=== PATIENT | male | born 1950 | race Caucasian/White ===

== ENCOUNTER → 2017-02-25 | Outpatient (CLI) | payer MEDICARE, OTHER ==
[~2017-02-25] MED LIST: FENTANYL
--- NOTE | 2017-02-25 22:02 | Diagnostic Imaging Report ---
INDICATION: Bilateral groin pain x2 weeks. FINDINGS: Right testicle measures 4.2 x 1.8 x 2.4 cm. Left testicle measures 4.1 x 1.9 x 3.2 cm. The testes have homogeneous echotexture and normal vascularity. There is a small left hydrocele. There are bilateral varicoceles. Epididymides are unremarkable. IMPRESSION: Bilateral varicoceles and small left hydrocele. Dictated by: Dictated on workstation # [id number]
== END ==
LOC: RAD 15:08
PROVIDERS: ATTEND Nurse Practitioner Family
DX: I86.1 Scrotal varices (principal); N43.3 Hydrocele, unspecified
CPT/HCPCS: 76870

== ENCOUNTER → 2017-03-01 | Outpatient (CLI) | payer MEDICARE, OTHER ==
--- NOTE | 2017-03-01 13:09 | Diagnostic Imaging Report ---
PROCEDURE: MRI lumbar spine. TECHNIQUE: Multiplanar, multisequence MRI of the lumbar spine was performed without contrast. INDICATION: Moving furniture with low back pain and bilateral leg pain. FINDINGS: Sagittal view shows some straightening of the normal lordotic curve. Alignment is otherwise good. Body height is well maintained with no compression fractures. Facets show good alignment. No pars defects are present. L3-L4: There is broad-based disc herniation with marked posterior facet and ligamentous hypertrophy which is causing trefoil stenosis. There is high-grade encroachment upon the lateral recesses and neuroforamen bilaterally. The AP central canal dimension is approximately 5 mm. L4-L5 and L5-S1: There is loss of disc space height with desiccation. Hypertrophic lipping of the endplates present bilaterally causing mild to moderate encroachment upon the neuroforamen. Laminectomy is present with no central canal stenosis. L1-L2, L2-L3: The discs appear normal. No facet or ligamentous hypertrophy. The conus medullaris and cauda equina are normal. Paraspinal soft tissues are normal. IMPRESSION: 1. Broad-based disc herniation with rather marked posterior facet and ligamentous hypertrophy at L3-L4 causing moderate to severe to severe encroachment upon the lateral recess and neuroforamen with minimal AP canal dimension of 5 mm. 2. Postsurgical changes L4-L5 with no central canal stenosis. Dictated by: Dictated on workstation # [id number]
== END ==
LOC: RAD 11:37
DX: M51.26 Other intervertebral disc displacement, lumbar region (principal); M89.38 Hypertrophy of bone, other site; M24.28 Disorder of ligament, vertebrae; M79.604 Pain in right leg; M79.605 Pain in left leg
CPT/HCPCS: 72148

== ENCOUNTER → 2018-06-23 | Outpatient (CLI) | payer MEDICARE, OTHER ==
--- NOTE | 2018-06-23 13:22 | Diagnostic Imaging Report ---
INDICATION: Left thumb pain. TIME OF EXAM: 11:57 a.m. Three views of the left hand were obtained. There is narrowing of the first CMC joint with some marginal osteophyte formation. This is consistent with osteo-arthritic changes. Metacarpals are intact. The phalanges are intact. No fractures are seen. IMPRESSION: First CMC joint degenerative change. No other significant abnormality is detected. Dictated by: Dictated on workstation # [id number]
--- NOTE | 2018-06-23 14:08 | Diagnostic Imaging Report ---
INDICATION: Pain in the left thumb, increasing in severity. TIME OF EXAM: 11:56 a.m. Three views of the left wrist were obtained. The distal radius and ulna are intact. The carpus is intact. There are degenerative changes at the first CMC joint, with joint space narrowing, sclerosis and marginal osteophyte formation. No fractures are seen. IMPRESSION: First CMC joint degenerative change. No acute bony abnormality is detected. Dictated by: Dictated on workstation # [id number]
== END ==
LOC: RAD 12:40
DX: M19.042 Primary osteoarthritis, left hand (principal)
CPT/HCPCS: 73110; 73130

== ENCOUNTER 2019-07-14 11:10 | Outpatient (RCR) | payer MEDICARE, OTHER | END 2019-08-06 | disposition home or self-care (01) | PROVIDERS: ATTEND Neurological Surgery | DX: M48.02 Spinal stenosis, cervical region (principal); M79.661 Pain in right lower leg ==